=== PATIENT | male | born 1955 | race Caucasian/White ===

== ENCOUNTER 2021-07-25 05:51 | Day surgery (SDC) | payer OTHER, SELFPAY ==
[2021-07-25] VITALS (10 sets, daily range): BP systolic 118–179; BP diastolic 71–123; PULSE 75–85; RESP 16; TEMP 36.1–36.5; O2SAT 94–100; BMI 36.1
[2021-07-25] MEDS: Lactated Ringers 1,000 ML 15 ML IV (06:05)
--- NOTE | 2021-07-25 06:20 | PCM.HP.STD ---
HPI - General HPI Narrative KOMAL ZHANG, is a 66 M who presents for screening colonoscopy. His previous examination was done [address] Dionisio Merlos. He has no past personal history of colon polyps or colon cancer. He otherwise states that he enjoys good health. He is not on any anticoagulant. [facility] Medical History Arthritis Loose, teeth Home Medications NK 07/23/21 [History Last Taken Unknown] Allergy/AdvReac Type Severity Reaction Status Date / Time rosuvastatin [From Crestor] AdvReac Severe Pain in Verified 07/23/21 15:12 joints Nhndsma-DRY-KaB Reductase AdvReac Severe Pain in Verified 07/23/21 15:12 Inhibitor joints ROS Constitutional Constitutional: Reports systems reviewed and no addt'l complaints, except as documented Cardiovascular Cardiovascular: Denies chest pain Respiratory/Chest Respiratory/Chest: Denies shortness of breath at rest Gastrointestinal Gastrointestinal: Denies abdominal pain, change in bowel habits, hematochezia or melena Physical Exam Const alert, oriented x3 and no apparent distress General Appearance: cooperative and comfortable Eyes General Eye: normal appearance of both eyes Neck General: normal visual inspection Chest inspection of chest normal Resp Effort and Inspection: able to speak in complete sentences and symmetric chest movement Auscultation: clear to auscultation bilaterally Cardio regular rate and regular rhythm GI soft to palpation, non-tender and non-distended Extremity no calf tenderness Neuro oriented x3 Psych thought process normal Assessment & Plan Assessment/Plan (1) Encounter for screening for malignant neoplasm of colon: PLAN: Patient presents via open access today for screening colonoscopy. He is aware of the benefit and risks and complications and alternatives. We will proceed as noted. I appreciate the opportunity of assisting with the surgical care. Romulo Little M.D., F.A.C.S.
[2021-07-25] MEDS: Midazolam 5 MG/ML Syringe (07:06)
--- NOTE | 2021-07-25 07:25 | OP.COLON_ITS ---
Patient Name: Luis Maki Procedure Date: 07/25/2021 7:00 AM Date of : 1955 Age: 66 Procedure: Colonoscopy Indications: Screening for colorectal malignant neoplasm Providers: Romulo Little MD Referring MD: Eduardo Rinaldi Medicines: Midazolam 3.5 mg IV, Meperidine 100 mg IV Patient Profile: Last Colonoscopy: more than 10 years ago. Complications: No immediate complications. Procedure: Pre-Anesthesia Assessment: - Prior to the procedure, a History and Physical was performed, and patient medications and allergies were reviewed. The patient's tolerance of previous anesthesia was also reviewed. The risks and benefits of the procedure and the sedation options and risks were discussed with the patient. All questions were answered, and informed consent was obtained. Prior Anticoagulants: The patient has taken no previous anticoagulant or antiplatelet agents. ASA Grade Assessment: II - A patient with mild systemic disease. After reviewing the risks and benefits, the patient was deemed in satisfactory condition to undergo the procedure. After I obtained informed consent, the scope was passed under direct vision. Throughout the procedure, the patient's blood pressure, pulse, and oxygen saturations were monitored continuously. The colonoscope was introduced through the anus and advanced to the cecum, identified by appendiceal orifice and ileocecal valve. The colonoscopy was performed without difficulty. The patient tolerated the procedure well. The quality of the bowel preparation was good. The ileocecal valve and the appendiceal orifice were photographed. Moderate Sedation: Moderate (conscious) sedation was personally administered by the endoscopist. The following parameters were monitored: oxygen saturation, heart rate, blood pressure, and response to care. Total physician intraservice time was 15 minutes. Scope In: 7:10:03 AM Scope Withdrawal Time 0 hours 7 minutes 46 seconds Scope Out: 7:19:51 AM Total Procedure Duration Time 0 hours 9 minutes 48 seconds Findings: The digital rectal exam findings include non-thrombosed external hemorrhoids, non-thrombosed internal hemorrhoids and internal hemorrhoids that prolapse with straining, but spontaneously regress to the resting position (Grade II). Pertinent negatives include normal prostate (size, shape, and consistency). The colon (entire examined portion) appeared normal. Impression: - Non-thrombosed external hemorrhoids, non-thrombosed internal hemorrhoids and internal hemorrhoids that prolapse with straining, but spontaneously regress to the resting position (Grade II) found on digital rectal exam. - The entire examined colon is normal. - No specimens collected. Recommendation: - Discharge patient to home. - Resume previous diet. - Continue present medications. - Repeat colonoscopy is not recommended due to current age (66 years or older) for screening purposes. Procedure Code(s): --- Professional --- 80111, Colonoscopy, flexible; diagnostic, including collection of specimen(s) by brushing or washing, when performed (separate procedure) 23998, 59, Moderate sedation services provided by the same physician or other qualified health patient care technician performing the diagnostic or therapeutic service that the sedation supports, requiring the presence of an independent trained observer to assist in the monitoring of the patient's level of consciousness and physiological status; initial 15 minutes of intraservice time, patient age 5 years or older Diagnosis Code(s): --- Professional --- Z12.11, Encounter for screening for malignant neoplasm of colon K64.1, Second degree hemorrhoids K64.4, Residual hemorrhoidal skin tags CPT copyright 2017 [employer]. All rights reserved. The codes documented in this report are preliminary and upon stewardesses teacher review may be revised to meet current compliance requirements. Romulo Little MD 07/25/2021 7:24:48 AM This report has been signed electronically. Number of Addenda: 0 Note Initiated On: 07/25/2021 7:00 AM
--- NOTE | 2021-07-25 07:25 | OP.CCLET_ITS ---
07/25/2021 Eduardo Rinaldi Re : Colonoscopy procedure for Luis Monaeger Rinaldi This procedure was performed on Sunday, July 25, 2021. My impressions and recommendations are as follows: Impressions : - Non-thrombosed external hemorrhoids, non-thrombosed internal hemorrhoids and internal hemorrhoids that prolapse with straining, but spontaneously regress to the resting position (Grade II) found on digital rectal exam. - The entire examined colon is normal. - No specimens collected. Recommendations : - Discharge patient to home. - Resume previous diet. - Continue present medications. - Repeat colonoscopy is not recommended due to current age (66 years or older) for screening purposes. My findings are described in the full procedure note, which is enclosed. If I can be of further assistance, please feel free to contact me at Doctor phone number(s): Work: . Sincerely, Romulo Little MD 07/25/2021 7:24:48 AM This report has been signed electronically.
== END 2021-07-25 08:19 | disposition home or self-care (01) ==
LOC: EN 05:53 → AC 05:54
PROVIDERS: PCP Family Medicine; Referring Provider Family Medicine; Visit Provider Surgery
PROC: 0DJD8ZZ Inspection of Lower Intestinal Tract, Via Natural or Artificial Opening Endoscopic (ICD-10-PCS; CPT 45378; principal; 2021-07-25 06:55)
DX: Z12.11 Encounter for screening for malignant neoplasm of colon (principal); K64.4 Residual hemorrhoidal skin tags; K64.1 Second degree hemorrhoids
CPT/HCPCS: 45378; 99152; 99153; J7120